=== PATIENT | male | born 1990 | race American Indian/Alaskan Native ===

== ENCOUNTER 2021-01-16 07:26 | Emergency (ER) | payer SELFPAY ==
[2021-01-16 07:41] VITALS: BP 135/84
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
== END 2021-01-16 11:43 | disposition home or self-care (01) ==
LOC: ED 07:26
DX: K04.7 Periapical abscess without sinus (principal); K02.9 Dental caries, unspecified; F17.200 Nicotine dependence, unspecified, uncomplicated; Z79.899 Other long term (current) drug therapy; Z98.890 Other specified postprocedural states
CPT/HCPCS: 99282